=== PATIENT | female | born 1945 | race Caucasian/White ===

== ENCOUNTER → 2016-05-23 | Outpatient (CLI) | payer BC ==
[~2016-05-23] MED LIST: ASCA500 PO; BIOT1CAP8 PO; CHOL20009 PO; LEVO112T2 PO; MISCCAP80 PO; MULT-513 PO; SYN100 PO
--- NOTE | 2016-05-23 16:21 | DIAGNOSTIC IMAGING REPORT ---
RIGHT KNEE 1 OR 2 VIEWS ROUTINE CLINICAL HISTORY: Right knee pain COMPARISON: None. DISCUSSION: No acute fractures are visualized. There are moderate osteoarthritic changes most pronounced involving the lateral joint compartment and patellofemoral joint. There are dorsal patellar spurs. IMPRESSION: 1. No acute fractures 2. Moderate osteoarthritic change Electronically signed by: Wilbur Tuttle M.D. 05/23/2016 4:20 PM Dictated Date/Time: 05/23/2016 4:19 PM
--- NOTE | 2016-05-23 16:22 | DIAGNOSTIC IMAGING REPORT ---
LEFT KNEE 1 OR 2 VIEWS ROUTINE CLINICAL HISTORY: Left knee pain COMPARISON: None. DISCUSSION: There are advanced arthritic changes with marked narrowing medial joint compartment. There are no acute fractures. Degenerative changes are also present within the patellofemoral joint with joint space narrowing and dorsal patellar spurs. Is a corticated density at the level of the proximal fibular tip. This is felt to be old. IMPRESSION: Advanced osteoarthritic change. No acute fracture. Electronically signed by: Wilbur Tuttle M.D. 05/23/2016 4:21 PM Dictated Date/Time: 05/23/2016 4:20 PM
--- NOTE | 2016-05-23 16:25 | DIAGNOSTIC IMAGING REPORT ---
LEG LENGTH STUDY (WHOLE LEG) CLINICAL HISTORY: Myalgias. Chronic knee pain. COMPARISON STUDY: No previous studies for comparison. FINDINGS: There are postsurgical changes of bilateral total hip arthroplasties. The right lower extremity as measured from the superior margin of the acetabular cup to the tibial plafond measures 855 mm. The left lower extremity as measured from the superior margin of the acetabular cup to the tibial plafond measures 844 mm. There are osteoarthritic changes within both knees. IMPRESSION: Slight leg length discrepancy with the right lower extremity measuring 11 mm longer than the left Electronically signed by: Wilbur Tuttle M.D. 05/23/2016 4:24 PM Dictated Date/Time: 05/23/2016 4:21 PM
== END | disposition home or self-care (01) ==
LOC: C.RADBC 15:55
PROVIDERS: ATTEND Internal Medicine
DX: M79.1 Myalgia (principal); M25.561 Pain in right knee; M25.562 Pain in left knee; M21.762 Unequal limb length (acquired), left tibia

== ENCOUNTER → 2016-05-24 | Outpatient (CLI) | payer BC ==
[2016-05-24 10:32] LABS: BASO % 0.5 %; BASO ABS # 0.03 K/uL (0-0.2); COMPLETE YES; EOS % 2.3 %; HEMATOCRIT 42.7 % (37-47); IG% 0.3 %; LYMPH ABS # 1.73 K/uL (1.2-3.4); MEAN CELL VOLUME 88.6 fL (80-100); MEAN CORPUSCULAR HEMOGLOBIN 30.3 pg (25-34); MEAN CORPUSCULAR HGB CONC 34.2 g/dl (32-36); MEAN PLATELET VOLUME 10.2 fL (7.4-10.4); MONO % 6.2 %; NEUT % 60.7 %; PLATELET COUNT 239 K/uL (130-400); RED BLOOD COUNT 4.82 M/uL (4.2-5.4); WHITE BLOOD COUNT 5.77 K/uL (4.8-10.8)
[2016-05-24 10:43] LABS: ALT/SGPT 20 U/L (12-78); AST/SGOT 17 U/L (15-37); BLOOD UREA NITROGEN 12 mg/dl (7-18); BUN/CREATININE RATIO 15.6 (10-20); CARBON DIOXIDE 25 mmol/L (21-32); CHLORIDE 106 mmol/L (98-107); CREATININE 0.75 mg/dl (0.60-1.20); GLUCOSE 96 mg/dl (70-99); POTASSIUM 4.1 mmol/L (3.5-5.1); SODIUM 140 mmol/L (136-145)
[2016-05-24 10:55] LABS: ALB/GLOB RATIO 0.9 (0.9-2); ALKALINE PHOSPHATASE 79 U/L (45-117)
[2016-05-24 12:31] LABS: LYME DISEASE AB IGG NEG (NEG)
[2016-05-24 12:47] LABS: LYME DISEASE AB IGM NEG (NEG)
--- NOTE | 2016-05-30 14:08 | CODING QUERY MEDICAL NECESSITY ---
SUPPORTING DIAGNOSIS NEEDED Dr. Zamarripa, A supporting diagnosis is required for the test/procedure performed on this patient in order for us to be reimbursed by the patient's insurance. Please provide a supporting diagnosis for the following test/procedure listed below next to the test name along with your signature. *If there is no additional diagnosis for this patient that would support the following test/procedure please document that below next to the test/procedure. Test(s)/Procedure(s) that require a supporting diagnosis: * ([id number]) B12 VITAMIN LEVEL DIAGNOSIS: DATE OF SERVICE: 05/24/16 Provider Signature: Date: Thank you Dylan Cnotreras [facility] Information Management Once completed, please kindly fax back to [phone] For questions please call [phone]
== END | disposition home or self-care (01) ==
LOC: C.LABBC 07:37
PROVIDERS: ATTEND Internal Medicine
DX: Z11.59 Encounter for screening for other viral diseases (principal); M79.1 Myalgia

== ENCOUNTER → 2016-06-17 | Day surgery (SDC) | payer BC ==
[2016-06-13 07:35] VITALS: Ht 160 cm; Wt 81.8 kg
[~2016-06-17] VITALS: Ht 160 cm; Wt 81.8 kg
[~2016-06-17] MED LIST changes: -LEVO112T2 PO; +LIDOCAINE HCL 2% 2 ML VIAL (20MG/ML) ONE; +MIDAZOLAM HCL 1 MG/ML 2ML VIAL ONE; +ONDANSETRON INJ 2 MG/ML 2 ML VIAL ONE; +PROPOFOL IV EMULSION 10 MG/ML 20 ML VIAL IV ONE; +PROPOFOL IV EMULSION 10 MG/ML 20 ML VIAL ONE; +SODIUM CHLORIDE 0.9% 500ML 500 ML IV ONE
--- NOTE | 2016-06-17 10:43 | Endo History and Physical ---
History & Physical Date of Service: Jun 17, 2016. Chief Complaint: abdominal pain and diarrhea Referring Physician: Dr. Ran Zamarripa History of Present Illness 70 yo CF who presents for colonoscopy secondary to abdominal pain and diarrhea. Past Medical History Thyroid Disease Past Surgical History Hx Cardiac Surgery: No Hx Internal Defibrillator: No Hx Pacemaker: No Hx Abdominal Surgery: Yes (HIATAL HERNIA REPAIR) Hx of Implantable Prosthesis: No Hx Post-Op Nausea and Vomiting: No Hx Cancer Surgery: Yes (SCC REMOVAL FROM NOSE - MOHS) Hx Thoracic Surgery: No Hx Orthopedic: Yes (RT LETICIA, LT LETICIA) Hx Urinary Tract Surgery: No Family History None Social History Smoking Status: Never Smoker Hx Substance Use: No Hx Alcohol Use: Yes (1/2 GLASS WINE 3X/WEEK) Allergies Coded Allergies: Iodinated Contrast Media (Verified Allergy, Mild, ITCHING, 06/13/16) Meclizine (Verified Adverse Reaction, Unknown, "JITTERINESS", 06/13/16) Current Medications Reported Home Medications Medications Dose Route/Sig Max Daily Dose Days Date Category Vitamin D (Cholecalciferol) 2,000 Unit Tab 1 Tab PO QAM 06/13/16 Reported Synthroid (Levothyroxine Sodium) 100 Mcg Tab 1 Tab PO QAM 06/13/16 Reported Vitamin C (Ascorbic Acid) 500 Mg Tab 1,000 Mg PO QAM 07/10/15 Reported Probiotic (Probiotic Product) 1 Cap Cap 2 Cap PO QAM 07/10/15 Reported Biotin 1 Mg Cap 1 Cap PO QAM 07/10/15 Reported Mvi With Minerals (Multivitamins/Minerals) Tab 1 Tab PO QAM 07/10/15 Reported Vital Signs Weight (Kilograms): 81.82 Height (Feet): 5 Height (Inches): 3 Date Time Temp Pulse Resp B/P Pulse Ox O2 Delivery O2 Flow Rate FiO2 06/17/16 10:24 36.8 78 20 143/83 97 Room Air Physical Exam General Appearance: WD/WN, no apparent distress Respiratory/Chest: Auscultation: breath sounds normal Cardiovascular: Heart Auscultation: RRR Abdomen: Bowel Sounds: normal Inspection & Palpation: soft, non-distended, no tenderness, guarding & rebound Assessment and Plan Assessment: 70 yo CF who presents for colonoscopy secondary to abdominal pain and diarrhea. Plan: Proceed with colonoscopy.
--- NOTE | 2016-06-17 11:18 | Discharge Instructions ---
Endoscopy Patient Instructions Date / Procedure(s) Performed Jun 17, 2016. Colonoscopy Allergy Information Coded Allergies: Iodinated Contrast Media (Verified Allergy, Mild, ITCHING, 06/13/16) Meclizine (Verified Adverse Reaction, Unknown, "JITTERINESS", 06/13/16) Discharge Date / Findings Jun 17, 2016. Diverticulosis Internal hemorrhoids Random colon biopsies Stool aspirate collected Provider Instructions Activity Restrictions - No exercising or heavy lifting for 24 hours. - Do not drink alcohol the day of the procedure. - Do not drive a car or operate machinery until the day after the procedure. - Do not make any important decisions or sign important papers in 24 hours after the procedure. Following Day: - Return to full activity which may include returning to work/school. Diet Start your diet with liquids and light foods (jello, soup, juice, toast). Then eat your usual diet if not nauseated. Treatment For Common After Affects For mild abdominal pain, bloating, or excessive gas: - Rest - Eat lightly - Lie on right side Follow-Up Information Follow-up with Dr. Ran Zamarripa as scheduled Anesthesia Information What You Should Know You have had a procedure that required some medicine to reduce anxiety and discomfort. This treatment is called moderate sedation. After receiving the treatment, you may be sleepy, but you will be able to breathe on your own. The effects of the treatment may last for several hours. Follow these instructions along with Activity/Diet recommendations noted above: * Do NOT do anything where dizziness or clumsiness would be dangerous. * Rest quietly at home today, then you can be up and about tomorrow. * Have a responsible person stay with you the rest of today. * You may have had an I.V. today. If so, you may take the dressing off later today. Recommendations Call your doctor if: * Trouble breathing * Continuous vomiting for more than 24 hours * Temperature above 101 degrees * Severe abdominal pain or bloating * Pain not relieved by pain medicine ordered * There is increased drainage or redness from any incision * A large amount of rectal bleeding greater than 2-3 tablespoons. (If you had a polyp/s removed or have hemorrhoids, a small amount of blood - from the rectum is to be expected.) * You have any unanswered questions or concerns. IN THE EVENT OF A SERIOUS EMERGENCY, GO TO THE NEAREST EMERGENCY ROOM Your discharge instructions were prepared by provider Prasad Gallego. Patient Instructions Signature Page Kitty Orl[place]den Patient (or Guardian) Signature/Date: I have read and understand the instructions given to me by my caregivers. Caregiver/RN/Doctor Signature/Date: The above-named patient and/or guardian has received patient instructions on this date. + Original Patient Signature Page (only) stays with chart. Please make copy for patient.
--- NOTE | 2016-06-17 11:18 | GI REPORT ---
Procedure Date: 06/17/2016 10:35 AM Procedure: Colonoscopy Indications: Generalized abdominal pain, Chronic diarrhea Medicines: Monitored Anesthesia Care Complications: No immediate complications. Estimated Blood Loss: Estimated blood loss: none. Procedure: Pre-Anesthesia Assessment: - Prior to the procedure, a History and Physical was performed, and patient medications and allergies were reviewed. The patient's tolerance of previous anesthesia was also reviewed. The risks and benefits of the procedure and the sedation options and risks were discussed with the patient. All questions were answered, and informed consent was obtained. Prior Anticoagulants: The patient has taken no previous anticoagulant or antiplatelet agents. ASA Grade Assessment: II - A patient with mild systemic disease. After reviewing the risks and benefits, the patient was deemed in satisfactory condition to undergo the procedure. After I obtained informed consent, the scope was passed under direct vision. Throughout the procedure, the patient's blood pressure, pulse, and oxygen saturations were monitored continuously. The scope was introduced through the anus and advanced to the terminal ileum. The colonoscopy was performed without difficulty. The patient tolerated the procedure well. The quality of the bowel preparation was good. The terminal ileum, ileocecal valve, appendiceal orifice, and rectum were photographed. Findings: Multiple small-mouthed diverticula were found in the sigmoid colon. Non-bleeding internal hemorrhoids were found during retroflexion. The hemorrhoids were small. Several random biopsies were obtained with cold forceps for histology in the entire colon. Fluid aspiration for cytology was performed in the entire colon. Impression: - Diverticulosis in the sigmoid colon. - Non-bleeding internal hemorrhoids. - Several random biopsies were obtained in the entire colon. - Fluid aspiration was performed. Recommendation: - Resume previous diet. - Continue present medications. - Repeat colonoscopy for surveillance based on pathology results. - Return to primary care physician as previously scheduled. Prasad Gallego DO 06/17/2016 11:17:16 AM This report has been signed electronically. Note Initiated On: 06/17/2016 10:35 AM I attest to the content of the Intraoperative Record and orders documented therein, exceptions below
[2016-06-17 11:40] VITALS: BP 140/84; PULSE 71; O2SAT 98
--- NOTE | 2016-06-17 11:48 | Anesthesiology Progress Note ---
Anesthesia Post Op Note Date & Time Jun 17, 2016 at 11:47 Vital Signs Pain Intensity: 0 Vital Signs Past 12 Hours Date Time Temp Pulse Resp B/P Pulse Ox O2 Delivery O2 Flow Rate FiO2 06/17/16 11:40 71 16 140/84 98 Room Air 06/17/16 11:25 70 16 131/89 97 Room Air 06/17/16 11:10 74 20 106/69 97 Room Air 06/17/16 10:24 36.8 78 20 143/83 97 Room Air Notes Mental Status: alert / awake / arousable, participated in evaluation Pt Amnestic to Procedure: Yes Nausea / Vomiting: adequately controlled Pain: adequately controlled Airway Patency, RR, SpO2: stable & adequate BP & HR: stable & adequate Hydration State: stable & adequate Anesthetic Complications: no major complications apparent
== END | disposition home or self-care (01) ==
LOC: C.GI 10:06
PROVIDERS: ATTEND Internal Medicine
DX: R10.84 Generalized abdominal pain (principal); K57.30 Diverticulosis of large intestine without perforation or abscess without bleeding; R19.7 Diarrhea, unspecified; E07.9 Disorder of thyroid, unspecified; K64.8 Other hemorrhoids

== ENCOUNTER → 2016-12-05 | Outpatient (CLI) | payer BC ==
[~2016-12-05] MED LIST changes: -LIDOCAINE HCL 2% 2 ML VIAL (20MG/ML) ONE; -MIDAZOLAM HCL 1 MG/ML 2ML VIAL ONE; -ONDANSETRON INJ 2 MG/ML 2 ML VIAL ONE; -PROPOFOL IV EMULSION 10 MG/ML 20 ML VIAL IV ONE; -PROPOFOL IV EMULSION 10 MG/ML 20 ML VIAL ONE; -SODIUM CHLORIDE 0.9% 500ML 500 ML IV ONE
--- NOTE | 2016-12-06 07:36 | MAMMOGRAPHY REPORT ---
BILATERAL DIGITAL SCREENING MAMMOGRAM TOMOSYNTHESIS WITH CAD: 12/05/2016 CLINICAL HISTORY: Routine screening. Patient has no complaints. TECHNIQUE: Breast tomosynthesis in addition to standard 2D mammography was performed. Current study was also evaluated with a Computer Aided Detection (CAD) system. COMPARISON: Comparison is made to exams dated: 12/03/2015 mammogram, 11/28/2014 mammogram, 04/01/2013 mammogram, 01/13/2012 mammogram, 12/29/2009 mammogram - [facility], and 11/05/2008. BREAST COMPOSITION: The tissue of both breasts is almost entirely fatty. FINDINGS: The MLO views are suboptimal due to inability of the patient to adequately position for th e exam, given poor shoulder mobility. There are stable asymmetries in left breast, and benign rim ca lcifications bilaterally. No new suspicious mass, architectural distortion or cluster of microcalcifi cations is seen. IMPRESSION: ACR BI-RADS CATEGORY 2: BENIGN There is no mammographic evidence of malignancy, within the limitations of the exam. A 1 year screeni ng mammogram is recommended. The patient will receive written notification of the results. Approximately 10% of breast cancers are not detected with mammography. A negative mammographic report should not delay biopsy if a clinically suggestive mass is present. Tessy Mcelroy M.D. ay/:12/05/2016 16:15:29 Leather Cartridge Belt Maker: Aislinn DEVLIN(Juan)(Rhett), [facility] letter sent: Normal 1/2 BI-RADS Code: ACR BI-RADS Category 2: Benign
== END | disposition home or self-care (01) ==
LOC: C.MAMM 10:01
PROVIDERS: ATTEND Internal Medicine
DX: Z12.31 Encounter for screening mammogram for malignant neoplasm of breast (principal)

== ENCOUNTER → 2017-10-05 | Outpatient (CLI) | payer BC | END | disposition home or self-care (01) | LOC: C.LAB 18:11 | PROVIDERS: ATTEND Internal Medicine | DX: R35.0 Frequency of micturition (principal) ==

== ENCOUNTER 2024-05-24 08:52 | Observation (INO) ==
--- NOTE | 2024-04-23 11:14 | PAT Medication Instructions ---
Medication Instructions Date of Service April 23, 2024 Home Medications lactobacillus combination no.9 4 billion cell capsule (Adult 50 Plus Probiotic) 4,000 mmu cells PO QAM biotin 1 mg capsule 1 mg PO DAILY cholecalciferol (vitamin D3) 25 mcg (1,000 unit) capsule 25 mcg PO DAILY multivitamin 1 tab PO QAM latanoprost 0.005 % eye drops 1 drp ophthalmic (eye) QAM levothyroxine 88 mcg tablet 88 mcg PO QAM MEDICATION INSTRUCTIONS: Continue as directed latanoprost 0.005 % eye drops 1 drp ophthalmic (eye) QAM STOP taking 2 weeks before surgery biotin 1 mg capsule 1 mg PO DAILY DO NOT take the morning of surgery cholecalciferol (vitamin D3) 25 mcg (1,000 unit) capsule 25 mcg PO DAILY lactobacillus combination no.9 4 billion cell capsule (Adult 50 Plus Probiotic) 4,000 mmu cells PO QAM multivitamin 1 tab PO QAM Take morning of surgery With a small sip of water, OTHERWISE NOTHING TO EAT OR DRINK AFTER MIDNIGHT: levothyroxine 88 mcg tablet 88 mcg PO QAM Other Notes If you have any questions please call us at [phone] or [phone] or [phone] or [phone]
--- NOTE | 2024-04-30 09:34 | Anesthesiology Consultation ---
Date of Service April 30, 2024 Assessment & Plan (1) Encounter for pre-operative examination: Plan - Outpatient joint assessment: Patient is currently scheduled for inpatient pathway. If re-evaluated and patient/surgeon requests outpatient pathway, patient is not ideal candidate for outpatient joint program. Chart Review Chart Review: Acceptable Risk for Surgery and Patient seen in Pre Admission Testing Teaching & Discussion Pre-Anesthesia Teaching/Discussion Notes: Instructed NPO after midnight before surgery, except medications with 15 cc of water. Medication instructions prov ided according to the PAT guidelines. History Surgery Operation Date: 05/24/24 12:30 Proposed Procedures p Left Total Knee Arthroplasty - Domingo Gordon MD Height/Weight Height: 5 ft 2 in Weight: 78.4 kg Allergies Allergy/AdvReac Type Severity Reaction Status Date / Time Iodinated Contrast Media Allergy Mild ITCHING Verified 04/18/24 13:43 meclizine AdvReac Mild put her to Verified 04/18/24 13:43 sleep Medications Home Medications Medication Instructions Recorded Confirmed Last Taken lactobacillus combination no.9 4 4,000 mmu cells PO QAM 02/21/19 04/18/24 06/27/21 07:30 billion cell capsule (Adult 50 Plus Probiotic) biotin 1 mg capsule 1 mg PO DAILY 11/18/21 04/18/24 Unknown cholecalciferol (vitamin D3) 25 25 mcg PO DAILY 11/18/21 04/18/24 Unknown mcg (1,000 unit) capsule multivitamin 1 tab PO QAM 11/18/21 04/18/24 Unknown latanoprost 0.005 % eye drops 1 drp ophthalmic (eye) QAM 05/18/23 04/18/24 Unknown levothyroxine 88 mcg tablet 88 mcg PO QAM 04/18/24 04/18/24 Unknown Past Medical History Medical History (Updated 04/30/24 @ 09:37 by Johanna Kunz PA-C) Asthma pt denies Decreased vibratory sense GERD (gastroesophageal reflux disease) no longer on meds > just hx History of blood clots (~2009) post-op DVT and PE-2009 after LETICIA, anticoagulated with eventual discontinuation of AC History of giant cell arteritis (~2021) History of pulmonary embolism (~2009) 2009, 2/2 DVT after LETICIA, anticoagulated with eventual discontinuation of AC Hx of hyperlipidemia Hypothyroidism VENU (obstructive sleep apnea) no cpap Vertigo w/balance disorder Patient denies h/o stroke, seizures, heart attack, heart failure, DM, HTN, or blood transfusions. Exercise / Class Metabolic Activity II 4-5 Yardwork/Stairs/Walk up hill (ambulates with cane, denies chest discomfort or shortness of breath with one flight of stairs) Past Family History Family History Father Atrial fibrillation Cardiac disorder Prostate cancer Mother Osteoarthritis Uncle Diabetes Grandmother Myocardial infarction Grandfather (Maternal) Stroke Other Depression Substance use disorder Denies family history of Ovarian cancer Breast cancer Lung cancer Colorectal cancer Hypertension Uterine cancer Past Surgical History Surgical History Hiatal hernia with repair History of cataract surgery left and RT History of colonoscopy History of dilatation and curettage x2, reportedly in 20s for hyperplasia and then was cleared by Dr. Gentile History of esophagogastroduodenoscopy (EGD) History of inguinal hernia repair History of Tonya fundoplication 2014 History of temporal artery biopsy (06/28/21) Right temporal artery biopsy Dr. Rosales History of tooth extraction History of total hip replacement right rip-2003 left hip- 2009 Hx of elbow surgery as child Past Anesthesia History No Hx of Anesthesia Complications and No Family Hx of Anesthesia Complications History of PONV No Hx of PONV and No Hx of Motion Sickness Social History Smoking Status: Never smoker Do You Dip or Chew Tobacco: No Hx Alcohol Use: Yes Alcohol type: wine alcohol intake frequency: other Alcohol Intake Frequency Comment: only ~4oz per week Hx Substance Use: No substance use type: does not use Review of Systems Patient denies chest pain, shortness of breath, dyspnea on exertion, fever, chills, cough, wheezing, or palpitations. Physical Exam Vital Signs Vitals BP 124/77 P 77 SP02 95% on RA RESP 19 Physical Patient resting comfortably in chair in no acute distress, alert and oriented, responding appropriately throughout visit Full cervical extension range of motion without pain TMD 3.5 finger breadths Mallampati Score 3 Dentition: several caps, denies chipped or loose teeth, implants or bridges Lungs: normal respiratory effort. Good air movement, clear throughout to auscultation, no adventitious breath sounds Cardiac: regular rate and rhythm, no murmurs noted Carotid arteries: negative bruit bilat Lab Results Anesthesia Preop Results Results Anesthesia Widget: WBC 6.12 K/ul (4.8-10.8) 04/30/24 Hgb 14.2 g/dl (12.0-16.0) 04/30/24 Hct 42.8 % (37.0-47.0) 04/30/24 Plt 251 K/uL (130-400) 04/30/24 Na 139 mmol/L (136-145) 04/30/24 K 4.0 mmol/L (3.5-5.1) 04/30/24 Cl 106 mmol/L (98-107) 04/30/24 CO2 28 mmol/L (21-32) 04/30/24 BUN 16 mg/dl (6-23) 04/30/24 Creat 0.75 mg/dl (0.6-1.2) 04/30/24 Glucose Level 109 mg/dl (70-99(Fasting)) H 04/30/24 PT 10.5 Seconds (9.0-12.0) 04/30/24 PTT 30 Seconds (21-31) 04/30/24 INR 1.0 (0.9-1.1) 04/30/24 Blood Type O Positive 04/30/24 Antibody Screen NEGATIVE 04/30/24 Testing Electrocardiogram Date: 04/30/24 NSR with sinus arrhythmia, rate 68 bpm Chest X-Ray Date: 04/30/24 No radiographic evidence of acute cardiopulmonary process with chronic findings as above.
--- NOTE | 2024-05-18 13:11 | History & Physical Report ---
Date of Service May 18, 2024 Assessment & Plan (1) Bilateral primary osteoarthritis of knee: 78-year-old female with advanced bilateral knee DJD left side more symptomatic than the right. She has failed conservative measures. She is ready proceed with a left knee replacement. She does have a history of bilateral hip replacements done at [facility] and had a PE after 1. No known clotting disorder. Plan: Were going to take her to the operating room and do a left total knee replacement. The risks and benefits of this procedure were explained to the patient in depth and she understands. Informed consent was obtained. Due to her history of the PE in the past will use Xarelto for DVT prophylaxis. She is planned to be discharged to home with a home health program and her 's assistance. (2) History of pulmonary embolism: (3) Hypothyroidism: (4) Hyperlipidemia: (5) History of total hip replacement: History of Present Illness Chief Complaint: . Bilateral knee pain left side greater than the right. Primary Care Provider: Jojo Metzger DO . Patient is a 78-year-old female who presents for follow-up and surgical treatment of her left knee primarily. She is got about a 2 to 3-year history of bilateral increasing knee pain and discomfort. The left side is a bit worse than the right. We put some shots in her knees which helped for a very brief period of time. She continues to be debilitated by the pain. She has a limited walking tolerance. She is now like to have her knees fixed. Of note, she has history of bilateral hip replacement done at the [facility] 10 years ago. Does have a history of a PE after one of her hip surgeries. She has no coagulation abnormalities. Does have a history of temporal arteritis and on prednisone. Allergies Allergy/AdvReac Type Severity Reaction Status Date / Time Iodinated Contrast Media Allergy Mild ITCHING Verified 04/18/24 13:43 meclizine AdvReac Mild put her to Verified 04/18/24 13:43 sleep Home Medications Medication Instructions Recorded Confirmed Type lactobacillus combination no.9 4 4,000 mmu cells PO QAM 02/21/19 04/18/24 History billion cell capsule (Adult 50 Plus Probiotic) biotin 1 mg capsule 1 mg PO DAILY 11/18/21 04/18/24 History cholecalciferol (vitamin D3) 25 25 mcg PO DAILY 11/18/21 04/18/24 History mcg (1,000 unit) capsule multivitamin 1 tab PO QAM 11/18/21 04/18/24 History latanoprost 0.005 % eye drops 1 drp ophthalmic (eye) QAM 05/18/23 04/18/24 History levothyroxine 88 mcg tablet 88 mcg PO QAM 04/18/24 04/18/24 History Past Med/Surg History Problem List (Updated 05/18/24 @ 13:10 by Domingo Gordon MD) Bilateral primary osteoarthritis of knee Bilateral knock knee Hyperlipidemia Vitamin D deficiency Severe sleep apnea Giant cell arteritis Thyroid disease Balance disorder Vertigo History of pulmonary embolism (Chronic) 2010 > after 2nd hip replacement > interval on anticoagulation with eventual AC d/c Asthma (Chronic) doesnt use res inh > well controlled Nocturnal hypoxemia (Chronic) Hypothyroidism (Chronic) Medical History History of giant cell arteritis (~2021) History of pulmonary embolism (~2009) 2009, 2/2 DVT after LETICIA, anticoagulated with eventual discontinuation of AC Hx of hyperlipidemia Hypothyroidism Vertigo w/balance disorder Asthma pt denies Decreased vibratory sense History of blood clots (~2009) post-op DVT and PE-2009 after LETICIA, anticoagulated with eventual discontinuation of AC GERD (gastroesophageal reflux disease) no longer on meds > just hx VENU (obstructive sleep apnea) no cpap Surgical History History of Tonya fundoplication 2014 History of temporal artery biopsy (06/28/21) Right temporal artery biopsy Dr. Rosales History of cataract surgery left and RT History of dilatation and curettage x2, reportedly in 20s for hyperplasia and then was cleared by Dr. Gentile Hx of elbow surgery as child History of esophagogastroduodenoscopy (EGD) Hiatal hernia with repair History of tooth extraction History of total hip replacement right rip-2003 left hip- 2009 History of inguinal hernia repair History of colonoscopy Family History Father Atrial fibrillation Cardiac disorder Prostate cancer Mother Osteoarthritis Uncle Diabetes Grandmother Myocardial infarction Grandfather (Maternal) Stroke Other Depression Substance use disorder Denies family history of Ovarian cancer Breast cancer Lung cancer Colorectal cancer Hypertension Uterine cancer Social History Smoking Status: Never smoker Second Hand Exposure: Yes (hx as child); Do You Dip or Chew Tobacco: No; Hx Alcohol Use: Yes Alcohol type: wine Alcohol Intake Frequency: 4 or More x p er/Week Hx Substance Use: No Preferred Language: Haitian Communication Ability: Effective Visual Impairment: Limited Hearing Ability: Normal Insight Leader Required: No Beliefs That Will Affect Care: None marital status: Current Living Situation: Spouse current occupational status: retired How many Children do You have: 2 Feels Safe at Home: Yes Childhood Exposure to Second-Hand Smoke: Yes caffeine: Yes Dental Care, Regularly: Yes Physical Activity Frequency: 3-4 Times per Week Seatbelt Use: always Sunscreen Use: Yes Assistive Devices: Glasses Review of Systems All systems reviewed & are unremarkable except as noted in HPI & below. Physical Exam . Physical examination reveals a patient who ambulates with use of a cane. Examination left knee reveals varus alignment to her knee. She is tender with medial joint line. Range of motion 5-1 20. No instability. No particular pain with hip motion. Examination of the right knee reveals slight valgus alignment to her knee. Moderate soft tissue envelope. Small knee effusion. Range of motion 5-1 20. No instability. Constitutional WD/WN, vitals as above Respiratory normal respiratory effort, lungs clear to auscultation Cardiovascular RRR, no murmur, no edema Gastrointestinal (Abdomen) normal bowel sounds, soft, nontender, no hepatosplenomegaly Results & Data Results & Data Laboratory Results . Diagnostic Findings . X-rays of both knees reveal advanced bilateral knee DJD. She got advanced medial compartment arthritis of the left knee and lateral compartment arthritis of the right. Diffuse osteopenia. PG Care Time/CCT Total # of Minutes Spent Total Time Spent with Patient: Total time spent is greater than 50% in coordination of care (as documented) at patient's floor/unit and/or counseling patient: Coding Level of Care Code None Diagnoses Bilateral primary osteoarthritis of knee M17.0 History of pulmonary embolism Z86.711 Hypothyroidism E03.9 Hyperlipidemia E78.5 History of total hip replacement Z96.649
[~2024-05-24 08:52] MED LIST changes: -ASCA500 PO; -BIOT1CAP8 PO; +BUPIVACAINE 0.5 % 5 MG/1 ML PF 10ML VIAL ONE; -CHOL20009 PO; -MISCCAP80 PO; -MULT-513 PO; +ROPIVACAINE 0.5% 5 MG/ML 30 ML VIAL ONE; -SYN100 PO
--- NOTE | 2024-05-24 09:22 | History & Physical Bridge Note ---
Date of Service May 24, 2024 History & Physical Bridge Note I have examined the patient, reviewed the History & Physical and in the interval since the performance of the History & Physical I have noted the following changes of clinical significance: no changes noted
[2024-05-24] MEDS ORDERED: PROPOFOL IV EMULSION 10 MG/ML 20 ML VIAL IV ONE (09:41)
[2024-05-24] MEDS ORDERED: fentaNYL citrate PF 100 MCG/2 ML VIAL ONE (09:41)
[2024-05-24] MEDS ORDERED: LIDOCAINE 2% 2 ML VIAL/AMP(20MG/ML) INFIL ONE (09:41)
[2024-05-24] MEDS ORDERED: MIDAZOLAM HCL 1 MG/ML 2ML VIAL ONE (09:41)
[2024-05-24] MEDS: LR 500ML BOLUS, THEN 15ML/HR IV SCH (09:56)
[2024-05-24] MEDS: ACETAMINOPHEN 500 MG TAB PO SCH ×2 (10:04→18:29)
[2024-05-24] MEDS: METOCLOPRAMIDE HCL 10 MG TABLET PO SCH (10:05)
[2024-05-24] MEDS: FAMOTIDINE 20 MG TAB PO SCH (10:05)
[2024-05-24] MEDS: CeleBREX 200 MG CAP PO SCH (10:05)
[2024-05-24] MEDS: dexAMETHasone**PF** 10 MG/ML VIAL IV SCH (10:05)
[2024-05-24] MEDS: LR 60ML/HR IV SCH (10:05)
[2024-05-24] MEDS ORDERED: ePHEDrine sulfate 50 MG/ML AMP IV PRN (10:44)
[2024-05-24] MEDS ORDERED: HYDROmorphone INJ 2 MG/ML SYR/VIAL IV PRN (10:44)
[2024-05-24] MEDS ORDERED: PROMETHAZINE HCL 6.25 MG in SODIUM CHLORIDE 0.9% 50 ML IV PRN (10:44)
[2024-05-24] MEDS ORDERED: ATROPINE SULFATE 0.1 MG/ML 10ML SYR IV PRN (10:44)
[2024-05-24] MEDS: ceFAZolin 2000MG 2,000 MG/15 ML SYR IV SCH (11:17)
[2024-05-24] MEDS: ROPIV 0.5% 246mg, Ketorolac 30mg, EPINEPHrine 0.5mg in NSS INFIL SCH (11:48)
[2024-05-24] MEDS: ORTHO JOINT ANESTHETIC ONE (11:49)
[2024-05-24] MEDS: TRANEXAMIC ACID 1,000 MG **IV Pre-op IV SCH (12:15)
--- NOTE | 2024-05-24 13:22 | Operative Report ---
PG Post Operative Report Pre & Post Diagnosis Operation Date: 05/24/24 10:40 Pre-Op Diagnosis: Left Knee Degenerative Joint Disease Post-Op Diagnosis: Left Knee Degenerative Joint Disease I identified the patient and participated in the time-out.: Yes Procedure Operation Date: 05/24/24 10:40 Actual Procedures p Left Total Knee Arthroplasty(Left) - Domingo Gordon MD Surgeon Domingo Gordon MD Thermal Cutting Machine Operator None Estimated Blood Loss 100 Findings Consistent with Post-Op Diagnosis Operative findings were advanced left knee tricompartment DJD. She had she had grade 4 disease in all 3 compartments. Very large posterior osteophytes with limited flexion to about 90 degrees preoperatively. Specimens Left knee sent for pathology. Anesthesia Type Spinal MAC Complications none Disposition Accompanied Patient To Recovery: No Indications Patient is a 78-year-old female is had a several year history of increasing knee pain and discomfort left side worse than the right. She failed all conservative measures. X-rays revealed a left knee tricompartment DJD. She elected proceed with surgical treatment. Description of Procedure Operative implants consist of: 1 Biomet Vanguard size 65 left posterior stabilized femoral component. 2. Biomet size 67 tibial tray. 3. 12 mm posterior stabilized polyethylene insert. 4. 28 x 8 all poly patella. The patient was taken the operating, identified, placed on the operating table in the supine position. All contact areas were appropriately padded. IV antibiotics fibra anesthesia team. A spinal anesthetic and adductor canal block had been Weida in the holding area. A Romo catheter was placed in sterile fashion. A left thigh turn was then placed. Left lower extremity was then prepped and draped in usual sterile fashion. Left leg was elevated exsanguinated with use of an Esmarch and a turn was placed at 300 mmHg. An anterior approach to the left knee was then performed to longitudinal incision centered over the patella. Sharp dissection was Through subcutaneous tissue down the extensor mechanism. A medial parapatellar arthrotomy incision was made. Some subperiosteal dissection was carried out med iaaiden. The fat pad was dissected from Neath patella tendon. The patient did seem to be losing a bit so we did increase the tourniquet pressure to 350 for the remainder of the case. The lateral patellofemoral ligament was released. The patella was subluxated laterally and the knee was flexed. The osteophytes taken on distal femur. The ACL and PCL were then released from distal femur and the tibia subluxate anteriorly. The external tibial alignment jig was then placed on the interface the tibia and adjusted 12 mm medially. The proximal tibial cut was made to take about 2 mm of bone from the medial side. Tibia sized to size 67. Attention drawn the femur. The distal femur examined the sharp drill. Intramedullary canal was suction. A left 5 degree valgus cutting guide was placed. The distal femoral cut was made to take an additional 3 mm of bone off distal femur. The femur was then sized to a size 65. The AP cutting block was pinned parallel to the epicondylar axis which was 5 degrees of external rotation. The anterior cut, anterior chamfer, posterior cut, posterior chamfer cuts were made. The box cutting guide was placed and just slight lateral and the box cut was made. The knee was flexed. The remnants of the medial and lateral menisci were excised to the osteophytes taken off the posterior aspect the femur. A trial femoral component was placed. The tibial tray was pinned Aubree extra rotation and the drill and stem point to use great defect in proximal tibia for the tibial tray. Knee was then trialed and the 12 mm insert fit most appropriately. Attention drawn the patella. The patella was cleaned of all soft tissue. Patella thickness measured 21 mm in thickness and was cut down to 13. Was sized to a size 28 patella. The lug holes were drilled for the 28 patella. The lateral osteophytes removed. Patella button was placed. Knee was taken through range of motion patella tracked nicely with no thumbs test. Attention was then drawn toward placement permanent components. All trial components were removed. A bone plug was placed into this femur limit blood loss. A double batch Palacos G cement was mixed. Biomet Vanguard size 65 left posterior stabilized femoral component, size 67 tibial tray, a 12 mm posterior stabilized polyethylene insert, and a 28 x 8 all poly patella then cemented in place. The knee was brought out into full extension till cement hardened. Final cement check was then performed. The pericapsular tissues were injected with total of 100 cc of Ortho mix. The patient did receive 1 g of tranexamic acid. The tourniquet was then let down for tourniquet time 60 minutes. Hemostasis surgeries electrocautery. Extensor Meclomen then closed with combination 1 PDS suture normal Vicryl suture in a [id number] fashion. Extensor Meclomen checked found to be intact with subcutaneous tissue then closed with 2 Dexon suture in a buried interrupted fashion the skin was closed skin gian. Leg was then cleaned and dried and a sterile dressing with Xeroform, 4 x 4's, sterile cast padding, Graham bandage were applied. Patient then transferred to the recovery room in stable condition. Patient tolerated the pr ocedure well and there were no complications. I attest to the content of the Intraoperative Record and any orders documented therein. Any exceptions are noted below.
--- NOTE | 2024-05-24 13:38 | XRay Report ---
XR knee LT 1 or 2V routine HISTORY: 78 years-old Female Surgical Post Op left knee arthroplasty COMPARISON: 12/11/2023 TECHNIQUE: 2 views of the left knee FINDINGS: Total joint arthroplasty with patellar resurfacing. Anterior midline skin gian with expected posto perative soft tissue swelling and deep tissue air. Arterial calcifications. IMPRESSION: Total joint arthroplasty with expected postoperative changes. ACT 112: Negative or not required by law. The above report was generated using voice recognition software. It may contain grammatical, syntax o r spelling errors. Electronically signed by: Yoshi Quintana M.D. 05/24/2024 1:36 PM
[2024-05-24] MEDS ORDERED: METOCLOPRAMIDE HCL INJ 5 MG/ML 2 ML VIAL IV PRN (16:22)
[2024-05-24] MEDS ORDERED: MAGNESIUM HYDROXIDE SUSP 30 ML UDC PO PRN (16:22)
[2024-05-24] MEDS ORDERED: NALOXONE HCL 0.4 MG/1 ML VIAL/CARP IV PRN (16:22)
[2024-05-24] MEDS ORDERED: ALUMINUM/MAGNESIUM SUSP 30 ML UDC PO PRN (16:22)
[2024-05-24] MEDS ORDERED: HYDROmorphone INJ 0.5 MG/0.5 ML SYR IV PRN (16:22)
[2024-05-24] MEDS ORDERED: ONDANSETRON INJ 2 MG/ML 2 ML VIAL IV PRN (16:22)
[2024-05-24] MEDS ORDERED: oxyCODONE HCL IR 5 MG TAB (IMMEDIATE RELEASE) PO PRN (16:22)
[2024-05-24] MEDS ORDERED: bisacodyL 10 MG SUPP PR PRN (16:22)
[2024-05-24] MEDS: ASCORBIC ACID 500 MG TAB PO SCH (18:29)
[2024-05-24] MEDS: KETOROLAC TROMETHAMINE 15 MG/ML VIAL IV SCH (18:30)
--- NOTE | 2024-05-24 18:45 | Anesthesiology Progress Note ---
Date of Service May 24, 2024 Anesthesia Post Procedure Vital Signs Vital Signs: Temp Pulse Pulse Resp BP Pulse Ox O2 Del Method 05/24/24 17:52 36.2 C L 87 17 130/76 96 Room Air 05/24/24 17:37 36.9 C 83 17 138/77 95 Room Air 05/24/24 16:22 36.5 C 79 16 140/73 96 Room Air 05/24/24 16:00 74 16 115/68 95 Room Air 05/24/24 15:30 74 14 127/72 97 Room Air 05/24/24 15:00 71 18 129/71 98 Room Air 05/24/24 14:45 67 18 127/72 96 Room Air 05/24/24 14:30 70 22 127/70 96 Room Air 05/24/24 14:15 68 16 124/67 96 Room Air 05/24/24 14:00 72 18 130/75 98 Room Air 05/24/24 13:50 70 16 134/77 98 Room Air 05/24/24 13:40 36.4 C L 70 20 131/70 97 Room Air 05/24/24 13:30 76 18 137/74 97 Room Air 05/24/24 13:20 82 20 131/87 97 Room Air 05/24/24 13:11 36.7 C 83 16 127/71 100 Room Air 05/24/24 09:25 36.6 C 88 20 145/89 H 95 Room Air Transfer of Care Handoff Completed per policy Notes Mental Status: alert / awake / arousable Patient Amnestic to Procedure: Yes Nausea / Vomiting: adequately controlled Pain: adequately controlled Airway Patency, RR, SpO2: stable & adequate BP & HR: stable & adequate Hydration State: stable & adequate Neuraxial Anesthesia: was administered and sensory block is resolving Anesthetic Complications: no major complications apparent and Pt Satisfied with anesthetic care
[2024-05-24] MEDS: DOCUSATE SODIUM 100 MG CAP PO SCH (20:39)
[2024-05-24] MEDS: TRANEXAMIC ACID / 0.7% NACL 1,000 MG/100 ML BAG IV SCH (20:40)
[2024-05-24] MEDS: SENNA 8.6 MG TAB PO SCH (20:40)
[2024-05-24] MEDS: ceFAZolin 1000MG 1,000 MG/7.5 ML SYR IV SCH (20:40)
[2024-05-24] MEDS ORDERED: SENNA 8.6 MG TAB PO SCH (21:00)
[2024-05-25] MEDS: LEVOTHYROXINE SODIUM 88 MCG TABLET PO SCH (05:56)
[2024-05-25 07:32] LABS: BUN Creatinine Ratio 23.5 (10-20); Calcium 8.8 mg/dl (8.6-10.3); Creatinine Clr Calc Pharmacy 55.2 ml/min
[2024-05-25 07:38] LABS: Hematocrit (blood only) 35.3 % (37.0-47.0); Hemoglobin 12.1 g/dl (12.0-16.0); Mean Corpuscular Hemoglobin 29.7 pg (25.0-34.0); Mean Corpuscular Hgb Conc 34.3 g/dL (32.0-36.0); Mean Corpuscular Volume 86.5 fL (80.0-100.0); Platelet Count 254 K/uL (130-400); RDW Coefficient of Variation 13.5 % (11.5-14.5); RDW Standard Deviation 42.5 fL (36.4-46.3); Red Blood Count 4.08 M/uL (4.20-5.40); White Blood Count 14.45 K/ul (4.8-10.8)
[2024-05-25 07:45] VITALS: BP 151/83; PULSE 72; RESP 18; TEMP 97.7; O2SAT 96
[2024-05-25] MEDS: dexAMETHasone 10 MG in SYRINGE 0 ML IV SCH (07:51)
--- NOTE | 2024-05-25 08:20 | Orthopedic Progress Note ---
Date of Service May 25, 2024 Assessment & Plan (1) Status post left knee replacement: Plan: 78-year-old female with multiple medical problems and history of PE in the past now on postop day 1 for left knee replacement. Orthopedically she looks to be doing great. Pain is controlled. She is neurologically intact. Plan: 1. DVT prophylaxis including thigh-high teds, SCDs, and begin Xarelto 24 hours postop due to her history of thrombosis in the past. 2. PT/OT. Weight-bear as tolerated. Left total knee protocol. 3. Pain control. Doing okay with current pain regiment. 4. Disposition. Plan is to discharge home with some home health and her 's assistance if she does okay in therapy today. (2) Hypothyroidism: (3) History of pulmonary embolism: (4) Thyroid disease: (5) Giant cell arteritis: (6) Hyperlipidemia: Admission and Anticipated Discharge Date Admission Date: May 24, 2024 Subjective 78-year-old female postop day 1 from left knee replacement. She is doing pretty well. Pains been very well-controlled. Fairly minimal at this point. No chest pain or shortness of breath. Not feeling dizzy or lightheaded. Hoping to go home today. Physical Exam Physical Exam: Physical examination is a pleasant middle-age female. She is sitting up in bed looks pretty comfortable this morning. Examination of the left leg reveals the leg to be well aligned. Dressings in place. No drainage. She can dorsiflex a nd plantarflex her foot appropriately. She is neurologically intact. Results & Data Vital Signs (Past 12 Hours) Vital Signs Temp Pulse Resp BP Pulse Ox O2 Del Method 05/25/24 07:44 36.5 C 72 18 151/83 H 96 Room Air 05/25/24 03:08 36.6 C 73 16 134/72 95 Room Air 05/24/24 22:52 36.4 C L 74 16 103/64 95 Room Air Laboratory Results Hemoglobin is 12.1. Hematocrit is 35.3. Electrolytes are stable.
[2024-05-25] MEDS: MULTIVITAMIN TAB PO SCH (08:36)
[2024-05-25] MEDS: CHOLECALCIFEROL 25 MCG (1000 UNITS) TAB PO SCH (08:36)
[2024-05-25] MEDS: LATANOPROST 0.005% OP SOLN 2.5 ML BTL OP SCH (08:37)
[2024-05-25] MEDS: LACTOBACILLUS ACIDOPHILUS 1 GM PACK PO SCH (08:38)
[2024-05-25] MEDS ORDERED: MULTIVITAMIN TAB PO SCH (09:00)
[2024-05-25] MEDS ORDERED: NON-FORMULARY MEDICATION (Biotin 1 mg capsule) PO SCH (09:00)
[2024-05-25] MEDS ORDERED: RIVAROXABAN 10 MG TABLET PO SCH (14:00)
--- NOTE | 2024-05-28 15:51 | Discharge Summary ---
Date of Service May 28, 2024 Admission HPI (Per Admitting) . Patient is a 78-year-old female who presents for follow-up and surgical treatment of her left knee primarily. She is got about a 2 to 3-year history of bilateral increasing knee pain and discomfort. The left side is a bit worse than the right. We put some shots in her knees which helped for a very brief period of time. She continues to be debilitated by the pain. She has a limited walking tolerance. She is now like to have her knees fixed. Of note, she has history of bilateral hip replacement done at the [facility] 10 years ago. Does have a history of a PE after one of her hip surgeries. She has no coagulation abnormalities. Does have a history of temporal arteritis and on prednisone. Admission Exam (Per Admitting) . Physical examination reveals a patient who ambulates with use of a cane. Examination left knee reveals varus alignment to her knee. She is tender with medial joint line. Range of motion 5-1 20. No instability. No particular pain with hip motion. Examination of the right knee reveals slight valgus alignment to her knee. Moderate soft tissue envelope. Small knee effusion. Range of motion 5-1 20. No instability. Principal Diagnosis Same as "Discharge Diagnosis" noted below under Discharge Instructions. Discharge Data Procedures Performed Operation Date: 05/24/24 10:40 Actual Procedures p Left Total Knee Arthroplasty(Left) - Domingo Gordon MD Ordered Studies 05/24/24 05:00 US - OR guided needle placemen Routine Hospital Course (1) Status post left knee replacement: This is a 78 year old patient admitted on 05/24/24 and underwent total knee arthroplasty. She tolerated the procedure well and there were no complications. Transferred to the PACU post op and later to the orthopedic floor for further care. She was given ancef for antibiotic prophylaxis. She was also given CHIDI stockings, SCDs, and xarelto for DVT prophylaxis. Hemoglobin, hematocrit, and vital signs were monitored during her hospital stay and remained stable. Did not require any blood transfusions. There were no complications during her hospital stay. By post op day #1 the patient was tolerating a regular diet, pain was reasonably controlled with oral pain medicine, and she was participating in physical therapy. On post op day #1 the patient was discharged home and set up with home health care. She was given printed discharge instructions including prescriptions for extra strength tylenol, xarelto, cefadroxil, zofran, oxycodone, and senokot. Continue physical therapy, weight bearing as tolerated. Continue CHIDI stockings. Follow up approximately 2 weeks post op or sooner if there are problems or concerns. PG Care Time/CCT Total # of Minutes Spent Total Time Spent with Patient: Total time spent is greater than 50% in coordination of care (as documented) at patient's floor/unit and/or counseling patient: Discharge Plan Discharge Items Patient Disposition: Home - Home Health Services Reason For Visit: Left Knee Osteoarthritis Discharge Diagnosis: Left Knee Replacement Activity: Per Instructions section Weightbearing: Full weightbearing Non-emergency contact: Surgeon Call non-emergency contact if: you have any medication questions Follow-up/Referrals: Jojo Metzger DO [Primary Care Provider] - [facility] [Non-Staff] - Diet: Regular Addtl Attending Provider Instructions: ACTIVITY RECOMMENDATIONS: Diet: * You may resume previous diet. Physical Therapy: * You will go to physical therapy three times each week for four to six weeks after your surgery in order to regain your knee range of motion and to retrain your knee to work properly. * It is just as important to make sure you are getting your knee perfectly straight as it is to regain your knee bend. * Taking a pain pill an hour before therapy can help you have a more productive and comfortable therapy session. Home Exercise: * You were shown a series of exercises (heel props, heel slides, etc.) in the hospital. Do these exercises three to four times each day including the exercises you were shown in physical therapy. Walking: * Get up and walk several times each day. For the first four weeks, try not to stand or walk for more than one hour at a time. If you do stand or walk for more than one hour, you will not hurt anything, but your knee and leg will likely swell. * As you feel comfortable, you may change from the walker or crutches to a cane and then to independent walking. MEDICATIONS: New Medicine: * You will likely be taking one or more of these medications: 1. Oxycodone - A quick and shorter-acting pain medication. Take one to two tablets every six hours to lessen your pain. 2. Xarelto - Thins your blood to lessen the chance of forming a blood clot. * The most common side effects of pain medicine and iron are nausea and constipation. If nausea or constipation is too much of a problem or if you have any questions about your new medicines or doses, call [facility] at . We will try to help you manage these issues. "VERY IMPORTANT TO READ AND REVIEW" Pain: * The immediate post-operative period after knee replacement surgery is often quite painful. * You are given a prescription for pain medicine. You should take it, as directed, when you need it, especially before physical therapy and before going to bed. Pain that interferes with sleep is very common and can last several months. * You will likely need pain medicine for the first four to six weeks. It will not stop all of the pain. The pain will lessen and as you feel better, you may change to milder pain medicine such as Tylenol. * The most common side effects of pain medicine are nausea and constipation, so don't take more than you need. SPECIAL CARE INSTRUCTIONS: TEDs/Elastic Stockings: * The white elastic stockings help limit swelling and prevent blood clots from forming in your legs. The more you wear them, the more they work. * Wear them for six weeks after knee replacement surgery and four weeks after partial knee replacement. Incision Site Care: * Remove dressing postoperative day 2 and then shower. Keep direct shower pressure off the incision site. * After showering, cover gian with dry gauze and change daily or more frequently if the dressing is getting saturated with drainage. * Use the CHIDI stockings to hold dressing in place. DO NOT apply tape on the skin. * May completely stop using bandage if wound is dry and no drainage * [place] are removed between 2 and 3 weeks post-op. If your follow-up appointment is made before 2 weeks, please have your appointment re- scheduled. It is too early to remove the gian. Prevention of Infection: * Take antibiotics one hour before any dental cleaning, dental work, urological procedure, gastrointestinal procedure or any invasive surgery in order to prevent your new joint from getting infected. * You may get the antibiotics from the doctor performing the procedure or you may call our office at [phone] before and we will call in a prescription to the pharmacy of your choice. Things to Watch For: * Drainage from the incision site that occurs more than one week after your surgery. * Severely increased knee/leg pain or swelling. * Increased redness at the incision site. * Fever above 102 degrees Fahrenheit. * Unusual chest pain or shortness of breath. * Unusual pain or burning with urination. Call [facility] at [phone] with any of the above problems or if you have any questions about your medicines or recovery. FOLLOW UP VISIT: Make an appointment to see your doctor for approximately two weeks after surgery for a progress check and staple removal by calling the office at [phone]. Pending Studies at Discharge: No Stand-Alone Forms: My [facility], Smoking Cessation Medications and DC Order Prescriptions: Continued oxycodone 5 mg tablet 5 - 10 mg PO Q6 PRN (Reason: pain) Qty: 40 0RF Rx Instructions: Take as needed for pain ondansetron 4 mg tablet,disintegrating 4 mg PO Q8 PRN (Reason: nausea) Qty: 20 1RF Rx Instructions: Take as needed for nausea sennosides [Senokot] 8.6 mg tablet 8.6 mg PO BID 14 Days Qty: 28 0RF Rx Instructions: Take two times a day to prevent/treat constipation Xarelto 10 mg tablet 10 mg PO DAILY 30 Days Qty: 30 0RF Rx Instructions: Take 1 tablet daily for 30 days to prevent blood clots cefadroxil 500 mg capsule 500 mg PO BID 7 Days Qty: 14 0RF Rx Instructions: Take 1 cap twice a day to prevent infection acetaminophen [Tylenol Extra Strength] 500 mg tablet 1,000 mg PO TID 30 Days Qty: 180 0RF Rx Instructions: Take 3 times per day to lessen pain. multivitamin Tablet 1 tab PO QAM biotin 1 mg capsule 1 mg PO DAILY cholecalciferol (vitamin D3) 25 mcg (1,000 unit) capsule 25 mcg PO DAILY Adult 50 Plus Probiotic 4 billion cell capsule 4,000 mmu cells PO QAM latanoprost 0.005 % drops 1 drp ophthalmic (eye) QAM levothyroxine 88 mcg tablet 88 mcg PO QAM Admission Data Admit Date/Time: 05/24/24 13:15 Attending Provider: Domingo Gordon Admit Provider: Domingo Gordon Primary Care Provider: Basedow,Elizabeth Other Providers: [facility] Other Interventions: Discharge Summary Assessment (RN) Last Done: 05/25/24 10:44
== END 2024-05-25 12:31 | disposition home health service (06) ==
LOC: ASU 08:52 → PACUINP 08:52 → 3N 16:23